=== PATIENT | male | born 1980 | race African-American/Black ===

== ENCOUNTER 2017-09-28 08:35 | Inpatient (IN) | payer OTHER ==
[2017-09-28 08:55] VITALS: BMI 36.2
--- NOTE | 2017-09-28 11:32 | HP ---
CIWA Score - CIWA Score Nausea/Vomitin-No Nausea/No Vomiting Muscle Tremors: 4-Moderate,w/Arms Extend Anxiety: 4-Mod. Anxious/Guarded Agitation: 4-Moderately Restless Paroxysmal Sweats: 3 Orientation: 0-Oriented Tacttile Disturbances: 0-None Auditory Disturbances: 0-None Visual Disturbances: 0-None Headache: 0-None Present CIWA-Ar Total Score: 15 Admission ROS BHS - HPI Chief Complaint: I need to correct my life again I slipped and need to get it right again. Allergies/Adverse Reactions: Allergies Allergy/AdvReac Type Severity Reaction Status Date / Time erythromycin base Allergy Severe Swelling Verified 09/28/17 09:44 penicillin G Allergy Severe Swelling Verified 09/28/17 09:44 History of Present Illness: pt is a 37yr old male with a history of alcohol and cocaine dependence seeking detox for treatment. Exam Limitations: No Limitations - Ebola screening Have you traveled outside of the country in the last 21 days: No Have you had contact with anyone from an Ebola affected area: No Have you been sick,other than usual withdrawal symptoms: No Do you have a fever: No - Review of Systems Constitutional: Diaphoresis, Changes in sleep EENT: reports: No Symptoms Reported Respiratory: reports: No Symptoms reported Cardiac: reports: No Symptoms Reported GI: reports: Poor Fluid Intake : reports: No Symptoms Reported Musculoskeletal: reports: Muscle Weakness Integumentary: reports: Flushing, Sweating Neuro: reports: Tingling, Tremors Endocrine: reports: Excessive Sweating, Flushing, Intolerance to Cold, Intolerance to Heat Hematology: reports: No Symptoms Reported Psychiatric: reports: Judgement Intact, Mood/Affect Appropiate, Orientated x3, Agitated, Anxious Other Systems: Reviewed and Negative Patient History - Patient Medical History Hx Anemia: No Hx Asthma: No Hx Chronic Obstructive Pulmonary Disease (COPD): No Hx Cancer: No Hx Cardiac Disorders: No Hx Congestive Heart Failure: No Hx Hypertension: No Hx Hypercholesterolemia: No Hx Pacemaker: No HX Cerebrovascular Accident: No Hx Seizures: No Hx Dementia: No Hx Diabetes: No Hx Gastrointestinal Disorders: No Hx Liver Disease: No Hx Genitourinary Disorders: No Hx Sexually Transmitted Disorders: No Hx Renal Disease (ESRD): No Hx Thyroid Disease: No Hx Human Immunodeficiency Virus (HIV): No (negative) Hx Hepatitis C: No Hx Depression: Yes Hx Suicide Attempt: No (denies) Hx Bipolar Disorder: No Hx Schizophrenia: No - Patient Surgical History Past Surgical History: Yes Hx Neurologic Surgery: No Hx Cataract Extraction: No Hx Cardiac Surgery: No Hx Lung Surgery: No Hx Breast Surgery: No Hx Breast Biopsy: No Hx Abdominal Surgery: No Hx Appendectomy: No Hx Cholecystectomy: No Hx Genitourinary Surgery: No Hx Section: No Hx Orthopedic Surgery: Yes (fx, right thumb in 2006) Other Surgical History: bilateral inguinal hernia repair in 2013 - PPD History Previous Implant?: Yes Documented Results: Negative w/o proof PPD to be Administered?: Yes - Reproductive History Patient is a Female of Child Bearing Age (11 -55 yrs old): No - Smoking Cessation Smoking history: Current every day smoker Have you smoked in the past 12 months: Yes Aproximately how many cigarettes per day: 2 Hx Chewing Tobacco Use: No Initiated information on smoking cessation: Yes 'Breaking Loose' booklet given: 09/28/17 - Substance & Tx. History Hx Alcohol Use: Yes Hx Substance Use: Yes Substance Use Type: Alcohol, Cocaine Hx Substance Use Treatment: Yes (last detox 7yrs ago at [facility]) - Substances Abused Cocaine Route: Inhalation Frequency: 1-2 times per week Amount used: $100 Age of first use: 36 Date of Last Use: 09/27/17 Alcohol-cognac Route: Oral Frequency: Daily Amount used: 1 gal. hennesy Age of first use: 20 Date of Last Use: 09/28/17 Family Disease History - Family Disease History Family Disease History: CA: [facility] Admission Physical Exam S - Vital Signs Vital Signs: Vital Signs - 24 hr 09/28/17 08:53 Temperature 97.7 F Pulse Rate 105 H Respiratory 18 Rate Blood Pressure 118/98 - Physical General Appearance: Yes: Appropriately Dressed, Moderate Distress, Tremorous, Irritable, Sweating, Anxious HEENTM: Yes: Hearing grossly Normal, Normal Voice, Nasal Congestion, Rhinorrhea Respiratory: Yes: Lungs Clear, Normal Breath Sounds, No Respiratory Distress Neck: Yes: No masses,lesions,Nodules Breast: Yes: Within Normal Limits Cardiology: Yes: Regular Rhythm, Regular Rate, S1, S2 Abdominal: Yes: Normal Bowel Sounds, Non Tender, Soft Genitourinary: Yes: Within Normal Limits Back: Yes: Normal Inspection Musculoskeletal: Yes: full range of Motion Extremities: Yes: Normal Capillary Refill, Normal Inspection, Non-Tender, Tremors Neurological: Yes: Fully Oriented, Alert, Normal Response Integumentary: Yes: Normal Color, Diaphoresis Lymphatic: Yes: Within Normal Limits - Diagnostic (1) Alcohol dependence with uncomplicated withdrawal Current Visit: Yes Status: Chronic (2) Cocaine dependence Current Visit: Yes Status: Chronic Qualifiers: Substance use status: uncomplicated Qualified Code(s): F14.20 - Cocaine dependence, uncomplicated; F14.20 - Cocaine dependence, uncomplicated; F14.20 - Cocaine dependence, uncomplicated (3) Nicotine dependence Current Visit: Yes Status: Chronic Qualifiers: Nicotine product type: cigarettes Substance use status: uncomplicated Qualified Code(s): F17.210 - Nicotine dependence, cigarettes, uncomplicated; F17.210 - Nicotine dependence, cigarettes, uncomplicated Cleared for Admission S - Detox or Rehab [facility] Level of Care: Medically Managed Detox Regimen/Protocol: Librium [facility] Breath Alcohol Content Breath Alcohol Content: 0 Urine Drug Screen - Results Drug Screen Negative: No Urine Drug Screen Results: ELICIA-Cocaine
[2017-09-28] MEDS ORDERED: MAGNESIUM CITRATE 300 ML BOTTLE PO PRN (11:36)
[2017-09-28] MEDS ORDERED: LOPERAMIDE HCL 2 MG CAPSULE PO PRN (11:36)
[2017-09-28] MEDS ORDERED: ACETAMINOPHEN 325 MG TABLET (FP) PO PRN (11:36)
[2017-09-28] MEDS ORDERED: chlordiazePOXIDE HCL 25 MG CAPSULE PO PRN (11:36)
[2017-09-28] MEDS ORDERED: MAG HYDROX/AL HYDROX/SIMETH 30 ML UNIT-DOSE CUP PO PRN (11:36)
[2017-09-28] MEDS ORDERED: IBUPROFEN 400 MG TABLET (FP) PO PRN (11:36)
[2017-09-28] MEDS ORDERED: MAGNESIUM HYDROX 2400MG/30ML ORAL SUSPENSION 30 ML CUP PO PRN (11:36)
[2017-09-28] MEDS ORDERED: hydrOXYzine PAMOATE 50 MG CAPSULE (FP) PO PRN (11:36)
[2017-09-28] MEDS ORDERED: MENTHOL/PHENOL 1 EACH UD MM PRN (11:36)
[2017-09-28] MEDS ORDERED: guaiFENesin/D-METHORPHAN HB 10 ML UNIT-DOSE CUPS PO PRN (11:36)
[2017-09-28] MEDS ORDERED: P-EPHED 60MG/TRIPROLIDI 2.5MG TABLET PO PRN (11:36)
[2017-09-28] MEDS ORDERED: chlordiazePOXIDE HCL 25 MG CAPSULE PO ONE (12:18)
--- NOTE | 2017-09-28 12:33 | CONSULT ---
[facility] Psychiatric Consult - Data Date of interview: 09/28/17 Admission source: [facility] Identifying data: This is 37 years old male with no past psychiatric history intoxicated with: Alcohol, Cocaine and Nicotine Substance Abuse History: Urine Drug Screen Results: ELICIA-Cocaine. Smoking history: Current every day smoker. Have you smoked in the past 12 months: Yes. Aproximately how many cigarettes per day: 2. Hx Chewing Tobacco Use: No. Initiated information on smoking cessation: Yes. 'Breaking Loose' booklet given : 09/28/17. - Substance & Tx. History. Hx Alcohol Use: Yes. Hx Substance Use : Yes. Substance Use Type: Alcohol, Cocaine. Hx Substance Use Treatment: Yes ( last detox [address] [facility]). - Substances Abused. Cocaine. Route: Inhalation. Frequency: 1-2 times per week. Amount used: $100. Age of first use: 36. Date of Last Use: 09/27/17. Alcohol-cognac. Route: Oral. Frequency: Daily. Amount used: 1 gal. hennesy. Age of first use: 20. Date of Last Use: 09/28/17 Medical History: Denies Psychiatric History: Denies Physical/Sexual Abuse/Trauma History: Denies Additional Comment: Urine Drug Screen Results: ELICIA-Cocaine. Observation. Detox Unit Care Protocol Mental Status Exam - Mental Status Exam Alert and Oriented to: Person Cognitive Function: Fair Patient Appearance: Well Groomed Mood: Apprehensive Affect: Appropriate Patient Behavior: Cooperative Speech Pattern: Appropriate Voice Loudness: Normal Thought Process: Goal Oriented Hallucinations: Denies Suicidal Ideation: Denies Homicidal Ideation: Denies Insight/Judgement: Fair Sleep: Difficulty falling asleep Appetite: Fair Muscle strength/Tone: Normal Gait/Station: Normal Additional Comments: Observation. Detox Unit Care Protocol Psychiatric Findings - Problem List (Reading 1, 2,3) (1) Alcohol dependence with uncomplicated withdrawal Current Visit: Yes Status: Chronic (2) Cocaine dependence Current Visit: Yes Status: Chronic Qualifiers: Substance use status: uncomplicated Qualified Code(s): F14.20 - Cocaine dependence, uncomplicated; F14.20 - Cocaine dependence, uncomplicated; F14.20 - Cocaine dependence, uncomplicated (3) Nicotine dependence Current Visit: Yes Status: Chronic Qualifiers: Nicotine product type: cigarettes Substance use status: uncomplicated Qualified Code(s): F17.210 - Nicotine dependence, cigarettes, uncomplicated; F17.210 - Nicotine dependence, cigarettes, uncomplicated (4) Drug-induced mood disorder Current Visit: Yes Status: Suspected - Initial Treatment Plan Initial Treatment Plan: Observation. Detox Unit Care Protocol
[2017-09-28 16:24] LABS: URINE APPEARANCE SLCLOUDY; URINE BILIRUBIN NEGATIVE (NEGATIVE); URINE BLOOD NEGATIVE (NEGATIVE); URINE COLOR AMBER; URINE GLUCOSE (UA) NEGATIVE (NEGATIVE); URINE KETONE 2+ (NEGATIVE); URINE NITRITE NEGATIVE (NEGATIVE)
[2017-09-28 16:35] LABS: URINE PROTEIN 2+ (NEGATIVE)
[2017-09-28 16:48] LABS: URINE MUCUS MODERATE; URINE RBC 1 /hpf (0-3); URINE WBC 2 /hpf (3-5)
--- NOTE | 2017-09-28 17:09 | EKG ---
Test Reason : Blood Pressure : / mmHG Vent. Rate : 073 BPM Atrial Rate : 073 BPM P-R Int : 120 ms QRS Dur : 100 ms QT Int : 418 ms P-R-T Axes : 028 047 030 degrees QTc Int : 460 ms NORMAL SINUS RHYTHM NORMAL ECG NO PREVIOUS ECGS AVAILABLE Confirmed by LORENZA MURRY MD ([id number]) on 09/28/2017 5:08:33 PM Referred By: Confirmed By:LORENZA MURRY MD
[2017-09-28] MEDS: chlordiazePOXIDE HCL 25 MG CAPSULE PO SCH ×2 (17:16→22:22)
[2017-09-28 18:34] LABS: URINE LEUK ESTERASE Negative (NEGATIVE)
[2017-09-28] MEDS: diphenhydrAMINE HCL 50 MG CAPSULE PO PRN (22:22)
[2017-09-28] MEDS: THIAMINE HCL 100 MG TABLET (FP) PO SCH (22:22)
[2017-09-29] MEDS: chlordiazePOXIDE HCL 25 MG CAPSULE PO SCH ×4 (05:16→22:17)
[2017-09-29 09:39] LABS: MCH 28.2 pg (25.7-33.7); MCHC 32.2 g/dl (32.0-35.9); MEAN CELL VOLUME 87.4 fl (80-96); MEAN PLT VOLUME 9.3 fl (7.5-11.1); PLATELET COUNT 241 K/MM3 (134-434); RDW 13.5 % (11.9-15.9); WHITE BLOOD COUNT 6.5 K/mm3 (4.0-10.0)
[2017-09-29 09:57] LABS: ALK PHOS 112 U/L (45-117); ANION GAP 8 (8-16); BILIRUBIN,TOTAL 1.2 mg/dL (0.2-1.0); CALCIUM 8.9 mg/dL (8.5-10.1); CO2 29 mmol/L (21-32); GLUCOSE,RANDOM 100 mg/dL (74-106); SGOT/AST 312 U/L (15-37); SGPT/ALT 108 U/L (12-78); TOT PROT 7.5 g/dl (6.4-8.2)
[2017-09-29] MEDS: PRENATAL VITAMINS W/ FOLIC ACID TABLET (FP) PO SCH (10:15)
[2017-09-29] MEDS: NICOTINE 21 MG/24 HOURS TOPICAL PATCH TD SCH (10:16)
--- NOTE | 2017-09-29 11:09 | PN ---
[facility] CIWA - CIWA Score Nausea/Vomitin-No Nausea/No Vomiting Muscle Tremors: 4-Moderate,w/Arms Extend Anxiety: 4-Mod. Anxious/Guarded Agitation: 4-Moderately Restless Paroxysmal Sweats: 1-Minimal Palms Moist Orientation: 0-Oriented Tacttile Disturbances: 3-Moderate Itch/Numb/Burn Auditory Disturbances: 0-None Visual Disturbances: 0-None Headache: 0-None Present CIWA-Ar Total Score: 16 BHS Progress Note (SOAP) Subjective: ANXIETY,SWEATS,FATIGUE. Objective: 09/29/17 11:07 Vital Signs Temperature 96.4 F L 09/29/17 10:00 Pulse Rate 86 09/29/17 10:00 Respiratory Rate 18 09/29/17 10:00 Blood Pressure 131/90 09/29/17 10:00 O2 Sat by Pulse Oximetry (%) Laboratory Last Values WBC 6.5 K/mm3 (4.0-10.0) 09/29/17 06:00 RBC 4.74 M/mm3 (4.00-5.60) 09/29/17 06:00 Hgb 13.3 GM/dL (11.7-16.9) 09/29/17 06:00 Hct 41.4 % (35.4-49) 09/29/17 06:00 MCV 87.4 fl (80-96) 09/29/17 06:00 MCH 28.2 pg (25.7-33.7) 09/29/17 06:00 MCHC 32.2 g/dl (32.0-35.9) 09/29/17 06:00 RDW 13.5 % (11.9-15.9) 09/29/17 06:00 Plt Count 241 K/MM3 (134-434) 09/29/17 06:00 MPV 9.3 fl (7.5-11.1) 09/29/17 06:00 Sodium 137 mmol/L (136-145) 09/29/17 06:00 Potassium 4.4 mmol/L (3.5-5.1) 09/29/17 06:00 Chloride 100 mmol/L (98-107) 09/29/17 06:00 Carbon Dioxide 29 mmol/L (21-32) 09/29/17 06:00 Anion Gap 8 (8-16) 09/29/17 06:00 BUN 11 mg/dL (7-18) 09/29/17 06:00 Creatinine 1.0 mg/dL (0.7-1.3) 09/29/17 06:00 Creat Clearance w eGFR > 60 (>60) 09/29/17 06:00 Random Glucose 100 mg/dL (74-106) 09/29/17 06:00 Calcium 8.9 mg/dL (8.5-10.1) 09/29/17 06:00 Total Bilirubin 1.2 mg/dL (0.2-1.0) H 09/29/17 06:00 AST 312 U/L (15-37) H 09/29/17 06:00 ALT 108 U/L (12-78) H 09/29/17 06:00 Alkaline Phosphatase 112 U/L (45-117) 09/29/17 06:00 Total Protein 7.5 g/dl (6.4-8.2) 09/29/17 06:00 Albumin 4.0 g/dl (3.4-5.0) 09/29/17 06:00 Urine Color Yolanda 09/28/17 14:00 Urine Appearance Slcloudy 09/28/17 14:00 Urine pH 5.0 (5.0-8.0) 09/28/17 14:00 Ur Specific [place] 1.033 (1.001-1.035) 09/28/17 14:00 Urine Protein 2+ (NEGATIVE) H 09/28/17 14:00 Urine Glucose (UA) Negative (NEGATIVE) 09/28/17 14:00 Urine Ketones 2+ (NEGATIVE) H 09/28/17 14:00 Urine Blood Negative (NEGATIVE) 09/28/17 14:00 Urine Nitrite Negative (NEGATIVE) 09/28/17 14:00 Urine Bilirubin Negative (NEGATIVE) 09/28/17 14:00 Urine Urobilinogen 2.0 mg/dL (0.2-1.0) 09/28/17 14:00 Ur Leukocyte Esterase Negative (NEGATIVE) 09/28/17 14:00 Urine RBC 1 /hpf (0-3) 09/28/17 14:00 Urine WBC 2 /hpf (3-5) 09/28/17 14:00 Ur Epithelial Cells Rare /hpf (FEW) 09/28/17 14:00 Urine Mucus Moderate 09/28/17 14:00 LABS NOTED ELEVATED AST/ALT Assessment: 09/29/17 11:08 WITHDRAWAL SX Plan: CONTINUE DETOX REPEAT AST AND ALT;INR IN AM
[2017-09-29] MEDS ORDERED: FLU VACCINE QUAD 60 MCG/0.5 ML (MDV 17-18) IM ONE (12:00)
[2017-09-29] MEDS: THIAMINE HCL 100 MG TABLET (FP) PO SCH (22:17)
[2017-09-29] MEDS: diphenhydrAMINE HCL 50 MG CAPSULE PO PRN (22:18)
[2017-09-30] MEDS: chlordiazePOXIDE HCL 25 MG CAPSULE PO SCH ×2 (06:04→10:23)
[2017-09-30] MEDS: NICOTINE 21 MG/24 HOURS TOPICAL PATCH TD SCH (10:23)
[2017-09-30] MEDS: PRENATAL VITAMINS W/ FOLIC ACID TABLET (FP) PO SCH (10:23)
--- NOTE | 2017-09-30 16:46 | PN ---
[facility] CIWA - CIWA Score Nausea/Vomitin-No Nausea/No Vomiting Muscle Tremors: 4-Moderate,w/Arms Extend Anxiety: 4-Mod. Anxious/Guarded Agitation: 3 Paroxysmal Sweats: 3 Orientation: 0-Oriented Tacttile Disturbances: 2-Mild Itch/Numbness/Burn Auditory Disturbances: 0-None Visual Disturbances: 0-None Headache: 0-None Present CIWA-Ar Total Score: 16 BHS Progress Note (SOAP) Subjective: Tremors, Sweating, Anxious. Objective: PT. A & O X 3, OBSERVED AMBULATING ON UNIT. NO ACUTE DISTRESS. 09/30/17 16:43 Vital Signs Temperature 97.7 F 09/30/17 13:33 Pulse Rate 93 H 09/30/17 13:33 Respiratory Rate 18 09/30/17 13:33 Blood Pressure 135/90 09/30/17 13:33 O2 Sat by Pulse Oximetry (%) Laboratory Tests 09/28/17 09/29/17 09/29/17 14:00 06:00 06:00 WBC 6.5 RBC 4.74 Hgb 13.3 Hct 41.4 MCV 87.4 MCH 28.2 MCHC 32.2 RDW 13.5 Plt Count 241 MPV 9.3 Sodium 137 Potassium 4.4 Chloride 100 Carbon Dioxide 29 Anion Gap 8 BUN 11 Creatinine 1.0 Creat Clearance w eGFR > 60 Random Glucose 100 Calcium 8.9 Total Bilirubin 1.2 H AST 312 H ALT 108 H Alkaline Phosphatase 112 Total Protein 7.5 Albumin 4.0 Urine Color Yolanda Urine Appearance Slcloudy Urine pH 5.0 Ur Specific [place] 1.033 Urine Protein 2+ H Urine Glucose (UA) Negative Urine Ketones 2+ H Urine Blood Negative Urine Nitrite Negative Urine Bilirubin Negative Urine Urobilinogen 2.0 Ur Leukocyte Esterase Negative Urine RBC 1 Urine WBC 2 Ur Epithelial Cells Rare Urine Mucus Moderate RPR Titer 09/29/17 06:00 WBC RBC Hgb Hct MCV MCH MCHC RDW Plt Count MPV Sodium Potassium Chloride Carbon Dioxide Anion Gap BUN Creatinine Creat Clearance w eGFR Random Glucose Calcium Total Bilirubin AST ALT Alkaline Phosphatase Total Protein Albumin Urine Color Urine Appearance Urine pH Ur Specific [place] Urine Protein Urine Glucose (UA) Urine Ketones Urine Blood Urine Nitrite Urine Bilirubin Urine Urobilinogen Ur Leukocyte Esterase Urine RBC Urine WBC Ur Epithelial Cells Urine Mucus RPR Titer Nonreactive LABS NOTED. Assessment: 09/30/17 16:44 WITHDRAWAL SYMPTOMS. Plan: CONTINUE DETOX. REPEAT AST AND ALT TOMORROW AM FOR ELEVATED ADMISSION VALUES.
[2017-09-30] MEDS: chlordiazePOXIDE 5 MG CAPSULE PO SCH ×2 (17:30→22:16)
[2017-09-30] MEDS: NICOTINE POLACRILEX 4 MG GUM BUC PRN (17:31)
[2017-09-30] MEDS: THIAMINE HCL 100 MG TABLET (FP) PO SCH (22:16)
[2017-09-30] MEDS: diphenhydrAMINE HCL 50 MG CAPSULE PO PRN (22:16)
[2017-10-01] MEDS: chlordiazePOXIDE 5 MG CAPSULE PO SCH ×2 (06:01→10:35)
[2017-10-01] MEDS: PRENATAL VITAMINS W/ FOLIC ACID TABLET (FP) PO SCH (10:35)
[2017-10-01] MEDS: NICOTINE 21 MG/24 HOURS TOPICAL PATCH TD SCH (10:35)
[2017-10-01] MEDS: NICOTINE POLACRILEX 4 MG GUM BUC PRN ×2 (10:35→17:32)
[2017-10-01 11:27] LABS: INR 0.9 (0.82-1.09); PROTHROMBIN TIME (PATIENT) 10.2 SEC (9.98-11.88)
[2017-10-01 11:32] LABS: ALBUMIN 3.2 g/dl (3.4-5.0); ANION GAP 8 (8-16); CALCIUM 7.9 mg/dL (8.5-10.1); CO2 28 mmol/L (21-32)
[2017-10-01 11:38] LABS: ALK PHOS 101 U/L (45-117); BILIRUBIN,TOTAL 0.3 mg/dL (0.2-1.0); CREATININE 0.8 mg/dL (0.7-1.3); GLUCOSE,RANDOM 98 mg/dL (74-106); SGOT/AST 46 U/L (15-37); SGPT/ALT 57 U/L (12-78); TOT PROT 6.2 g/dl (6.4-8.2)
--- NOTE | 2017-10-01 14:35 | PN ---
BHS Progress Note (SOAP) Subjective: Anxious, sweating, interrupted sleep Objective: 10/01/17 14:31 Last Vital Signs Temp Pulse Resp BP Pulse Ox 96.0 F L 80 20 136/89 10/01/17 13:42 10/01/17 13:42 10/01/17 13:42 10/01/17 13:42 Laboratory Tests 09/28/17 09/29/17 09/29/17 14:00 06:00 06:00 WBC 6.5 RBC 4.74 Hgb 13.3 Hct 41.4 MCV 87.4 MCH 28.2 MCHC 32.2 RDW 13.5 Plt Count 241 MPV 9.3 PT with INR INR Sodium 137 Potassium 4.4 Chloride 100 Carbon Dioxide 29 Anion Gap 8 BUN 11 Creatinine 1.0 Creat Clearance w eGFR > 60 Random Glucose 100 Calcium 8.9 Total Bilirubin 1.2 H AST 312 H ALT 108 H Alkaline Phosphatase 112 Total Protein 7.5 Albumin 4.0 Urine Color Yolanda Urine Appearance Slcloudy Urine pH 5.0 Ur Specific [place] 1.033 Urine Protein 2+ H Urine Glucose (UA) Negative Urine Ketones 2+ H Urine Blood Negative Urine Nitrite Negative Urine Bilirubin Negative Urine Urobilinogen 2.0 Ur Leukocyte Esterase Negative Urine RBC 1 Urine WBC 2 Ur Epithelial Cells Rare Urine Mucus Moderate RPR Titer 09/29/17 10/01/17 10/01/17 06:00 07:20 07:20 WBC RBC Hgb Hct MCV MCH MCHC RDW Plt Count MPV PT with INR 10.20 INR 0.90 Sodium 142 Potassium 3.9 Chloride 106 Carbon Dioxide 28 Anion Gap 8 BUN 5 L D Creatinine 0.8 Creat Clearance w eGFR > 60 Random Glucose 98 Calcium 7.9 L Total Bilirubin 0.3 D AST 46 H D ALT 57 D Alkaline Phosphatase 101 Total Protein 6.2 L Albumin 3.2 L Urine Color Urine Appearance Urine pH Ur Specific [place] Urine Protein Urine Glucose (UA) Urine Ketones Urine Blood Urine Nitrite Urine Bilirubin Urine Urobilinogen Ur Leukocyte Esterase Urine RBC Urine WBC Ur Epithelial Cells Urine Mucus RPR Titer Nonreactive Labs noted: abnormal labs Assessment: 10/01/17 14:32 Withdrawal symptoms Noted with abnormal urine Plan: Continue detox Abnormal urine: encouraged to drink lots of water, repeat UA
[2017-10-01] MEDS: chlordiazePOXIDE HCL 10 MG CAPSULE PO SCH ×2 (17:32→22:21)
[2017-10-01] MEDS: THIAMINE HCL 100 MG TABLET (FP) PO SCH (22:21)
[2017-10-01] MEDS: diphenhydrAMINE HCL 50 MG CAPSULE PO PRN (22:21)
[2017-10-02 02:06] LABS: URINE APPEARANCE CLEAR; URINE BILIRUBIN NEGATIVE (NEGATIVE); URINE BLOOD NEGATIVE (NEGATIVE); URINE COLOR YELLOW; URINE GLUCOSE (UA) NEGATIVE (NEGATIVE); URINE KETONE NEGATIVE (NEGATIVE); URINE NITRITE NEGATIVE (NEGATIVE); URINE PROTEIN NEGATIVE (NEGATIVE); URINE UROBILINOGEN NEGATIVE mg/dL (0.2-1.0)
[2017-10-02] MEDS: chlordiazePOXIDE HCL 10 MG CAPSULE PO SCH (05:44)
[2017-10-02 06:18] VITALS: BP 144/82; PULSE 69; TEMP 97.5
[2017-10-02] MEDS: NICOTINE POLACRILEX 4 MG GUM BUC PRN (07:30)
[2017-10-02 12:31] LABS: URINE LEUK ESTERASE Negative (NEGATIVE)
--- NOTE | 2017-10-02 13:48 | DS ---
[facility] Detox Discharge Summary Admission Date: 09/28/17 Discharge Date: 10/02/17 - History Present History: Alcohol Dependence, Cocaine Dependence Additional Comments: PATIENT GOING HOME. PATIENT REPORTS THAT HE HAS AN OUTPATIENT DAY PROGRAM ( PATIENT UNABLE TO RECALL NAME AT THIS TIME) THAT HE WILL GO TO FOR AFTERCARE. PATIENT WAS DISCHARGED FROM DETOX UNIT IN STABLE MEDICAL CONDITION. Pertinent Past History: Depression, Nicotine Dependence. - Physical Exam Results Vital Signs: Vital Signs Temperature 97.5 F L 10/02/17 06:17 Pulse Rate 69 10/02/17 06:17 Respiratory Rate 18 10/02/17 06:17 Blood Pressure 144/82 10/02/17 06:17 O2 Sat by Pulse Oximetry (%) Pertinent Admission Physical Exam Findings: WITHDRAWAL SYMPTOMS. Laboratory Tests 09/28/17 09/29/17 09/29/17 14:00 06:00 06:00 WBC 6.5 RBC 4.74 Hgb 13.3 Hct 41.4 MCV 87.4 MCH 28.2 MCHC 32.2 RDW 13.5 Plt Count 241 MPV 9.3 PT with INR INR Sodium 137 Potassium 4.4 Chloride 100 Carbon Dioxide 29 Anion Gap 8 BUN 11 Creatinine 1.0 Creat Clearance w eGFR > 60 Random Glucose 100 Calcium 8.9 Total Bilirubin 1.2 H AST 312 H ALT 108 H Alkaline Phosphatase 112 Total Protein 7.5 Albumin 4.0 Urine Color Yolanda Urine Appearance Slcloudy Urine pH 5.0 Ur Specific [place] 1.033 Urine Protein 2+ H Urine Glucose (UA) Negative Urine Ketones 2+ H Urine Blood Negative Urine Nitrite Negative Urine Bilirubin Negative Urine Urobilinogen 2.0 Ur Leukocyte Esterase Negative Urine RBC 1 Urine WBC 2 Ur Epithelial Cells Rare Urine Mucus Moderate RPR Titer 09/29/17 10/01/17 10/01/17 06:00 07:20 07:20 WBC RBC Hgb Hct MCV MCH MCHC RDW Plt Count MPV PT with INR 10.20 INR 0.90 Sodium 142 Potassium 3.9 Chloride 106 Carbon Dioxide 28 Anion Gap 8 BUN 5 L D Creatinine 0.8 Creat Clearance w eGFR > 60 Random Glucose 98 Calcium 7.9 L Total Bilirubin 0.3 D AST 46 H D ALT 57 D Alkaline Phosphatase 101 Total Protein 6.2 L Albumin 3.2 L Urine Color Urine Appearance Urine pH Ur Specific [place] Urine Protein Urine Glucose (UA) Urine Ketones Urine Blood Urine Nitrite Urine Bilirubin Urine Urobilinogen Ur Leukocyte Esterase Urine RBC Urine WBC Ur Epithelial Cells Urine Mucus RPR Titer Nonreactive 10/01/17 17:40 WBC RBC Hgb Hct MCV MCH MCHC RDW Plt Count MPV PT with INR INR Sodium Potassium Chloride Carbon Dioxide Anion Gap BUN Creatinine Creat Clearance w eGFR Random Glucose Calcium Total Bilirubin AST ALT Alkaline Phosphatase Total Protein Albumin Urine Color Yellow Urine Appearance Clear Urine pH 7.0 D Ur Specific [place] 1.019 Urine Protein Negative Urine Glucose (UA) Negative Urine Ketones Negative Urine Blood Negative Urine Nitrite Negative Urine Bilirubin Negative Urine Urobilinogen Negative Ur Leukocyte Esterase Negative Urine RBC Urine WBC Ur Epithelial Cells Urine Mucus RPR Titer LABS NOTED. - Treatment Hospital Course: Detox Protocol Followed, Detoxed Safely, Responded well, Discharged Condition Good Patient has Accepted a Rehab Referral to: NO. PT WILL GO TO LOCAL OUTPATIENT DAY PROGRAM FOR AFTERCARE. - Medication Discharge Medications: Ambulatory Orders NK [No Known Home Medication] 09/28/17 - Diagnosis (1) Alcohol dependence with uncomplicated withdrawal Status: Acute (2) Cocaine dependence Status: Acute Qualifiers: Substance use status: uncomplicated Qualified Code(s): F14.20 - Cocaine dependence, uncomplicated; F14.20 - Cocaine dependence, uncomplicated; F14.20 - Cocaine dependence, uncomplicated (3) Nicotine dependence Status: Acute Qualifiers: Nicotine product type: cigarettes Substance use status: in withdrawal Qualified Code(s): F17.213 - Nicotine dependence, cigarettes, with withdrawal; F17.213 - Nicotine dependence, cigarettes, with withdrawal (4) Drug-induced mood disorder Status: Suspected - AMA Did Patient Leave Against Medical Advice: No
== END 2017-10-02 09:19 | disposition home or self-care (01) | DRG 774 ==
LOC: YASAS 08:35 → Y3N 12:12
PROVIDERS: ADMIT Internal Medicine; ATTEND Internal Medicine
PROC: HZ2ZZZZ Detoxification Services for Substance Abuse Treatment (ICD-10-PCS; principal; 2017-09-28)
DX: F10.230 Alcohol dependence with withdrawal, uncomplicated (principal); F14.20 Cocaine dependence, uncomplicated; F17.213 Nicotine dependence, cigarettes, with withdrawal; F19.24 Other psychoactive substance dependence with psychoactive substance-induced mood disorder; R82.90 Unspecified abnormal findings in urine; R74.0 Nonspecific elevation of levels of transaminase and lactic acid dehydrogenase [LDH]; Z88.0 Allergy status to penicillin
CPT/HCPCS: 36415; 80053; 81003; 81015; 85027; 85610; 86593; 90688; 93005; 93010; G0008

== ENCOUNTER 2019-01-27 11:01 | Inpatient (IN) | payer OTHER ==
[2019-01-27 12:01] VITALS: BMI 29.9
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
[2019-01-27] MEDS ORDERED: P-EPHED 60MG/TRIPROLIDI 2.5MG TABLET PO PRN (14:12)
[2019-01-27] MEDS ORDERED: MAG HYDROX/AL HYDROX/SIMETH 30 ML UNIT-DOSE CUP PO PRN (14:12)
[2019-01-27] MEDS ORDERED: ACETAMINOPHEN 325 MG TABLET (FP) PO PRN (14:12)
[2019-01-27] MEDS ORDERED: guaiFENesin/D-METHORPHAN HB 10 ML UNIT-DOSE CUPS PO PRN (14:12)
[2019-01-27] MEDS ORDERED: MAGNESIUM CITRATE 300 ML BOTTLE PO PRN (14:12)
[2019-01-27] MEDS ORDERED: MENTHOL/PHENOL 1 EACH UD MM PRN (14:12)
[2019-01-27] MEDS ORDERED: MAGNESIUM HYDROX 2400MG/30ML ORAL SUSPENSION 30 ML CUP PO PRN (14:12)
[2019-01-27] MEDS ORDERED: LOPERAMIDE HCL 2 MG CAPSULE PO PRN (14:12)
[2019-01-27] MEDS ORDERED: IBUPROFEN 400 MG TABLET (FP) PO PRN (14:12)
[2019-01-27] MEDS ORDERED: IBUPROFEN 600 MG TABLET (FP) PO PRN (14:14)
[2019-01-27] MEDS: chlordiazePOXIDE HCL 25 MG CAPSULE PO PRN (15:50)
[2019-01-27] MEDS: NICOTINE 21 MG/24 HOURS TOPICAL PATCH TD SCH (15:54)
[2019-01-27] MEDS: chlordiazePOXIDE HCL 25 MG CAPSULE PO SCH ×2 (17:11→22:24)
[2019-01-27] MEDS: THIAMINE HCL 100 MG TABLET (FP) PO SCH (22:24)
[2019-01-28] MEDS: chlordiazePOXIDE HCL 25 MG CAPSULE PO SCH ×4 (05:17→22:14)
[2019-01-28 10:08] LABS: ALBUMIN 3.4 g/dl (3.4-5.0); ALK PHOS 95 U/L (45-117); ANION GAP 7 MMOL/L (8-16); BLOOD UREA NITROGEN 8 mg/dL (7-18); CALCIUM 8.8 mg/dL (8.5-10.1); CHLORIDE 104 mmol/L (98-107); CO2 30 mmol/L (21-32); CREATININE 0.9 mg/dL (0.55-1.3); GLUCOSE,RANDOM 94 mg/dL (74-106); POTASSIUM 4.7 mmol/L (3.5-5.1); SGOT/AST 25 U/L (15-37); SGPT/ALT 23 U/L (13-61); SODIUM 140 mmol/L (136-145); TOT PROT 6.9 g/dl (6.4-8.2)
[2019-01-28] MEDS: PRENATAL VITAMINS W/ FOLIC ACID TABLET (FP) PO SCH (10:21)
[2019-01-28] MEDS: NICOTINE 21 MG/24 HOURS TOPICAL PATCH TD SCH (10:21)
[2019-01-28 10:30] LABS: HEMATOCRIT 40.8 % (35.4-49); HEMOGLOBIN 13.5 GM/dL (11.7-16.9); MCH 29.8 pg (25.7-33.7); MCHC 33.2 g/dl (32.0-35.9); MEAN CELL VOLUME 89.8 fl (80-96); MEAN PLT VOLUME 8.7 fl (7.5-11.1); PLATELET COUNT 175 K/MM3 (134-434); RBC 4.54 M/mm3 (4.00-5.60); RDW 13.6 % (11.9-15.9); WHITE BLOOD COUNT 3.2 K/mm3 (4.0-10.0)
--- NOTE | 2019-01-28 13:23 | PN ---
S CIWA - CIWA Score Nausea/Vomitin-No Nausea/No Vomiting Muscle Tremors: 2 Anxiety: 4-Mod. Anxious/Guarded Agitation: 2 Paroxysmal Sweats: 3 Orientation: 0-Oriented Tacttile Disturbances: 2-Mild Itch/Numbness/Burn Auditory Disturbances: 0-None Visual Disturbances: 0-None Headache: 0-None Present CIWA-Ar Total Score: 13 [facility] Progress Note (SOAP) Subjective: Fatigue, Sweating, Tremors. Objective: PATIENT A & O X 3, OBSERVED AMBULATING ON UNIT. IN NO ACUTE DISTRESS. 01/28/19 13:23 Vital Signs Temperature 97.3 F L 01/28/19 09:21 Pulse Rate 92 H 01/28/19 12:00 Respiratory Rate 18 01/28/19 09:21 Blood Pressure 150/107 H 01/28/19 09:21 O2 Sat by Pulse Oximetry (%) Laboratory Tests 01/28/19 01/28/19 01/28/19 07:00 07:00 07:00 WBC 3.2 L RBC 4.54 Hgb 13.5 Hct 40.8 MCV 89.8 MCH 29.8 MCHC 33.2 RDW 13.6 Plt Count 175 D MPV 8.7 Sodium 140 Potassium 4.7 Chloride 104 Carbon Dioxide 30 Anion Gap 7 L BUN 8 Creatinine 0.9 Creat Clearance w eGFR > 60 Random Glucose 94 Calcium 8.8 Total Bilirubin 1.0 AST 25 ALT 23 Alkaline Phosphatase 95 Total Protein 6.9 Albumin 3.4 RPR Titer Nonreactive LABS NOTED. 01/28/19 13:26 Assessment: 01/28/19 13:26 WITHDRAWAL SYMPTOMS. LEUKOPENIA. ELEVATED BLOOD PRESSURE WITHOUT DIAGNOSIS OF HYPERTENSION. Plan: CONTINUE DETOX. CONTINUE TO MONITOR BP.
[2019-01-28] MEDS ORDERED: cloNIDine HCL 0.1 MG TABLET PO ONE (15:25)
--- NOTE | 2019-01-28 15:28 | PN ---
S Progress Note Note: Clonidine, 0.1 mg PO BID ordered for elevated BP. Received notice from RN that Patient Refused X-Ray of Right Hand because "His Hand Feels Better now." Danyel Choi NP
[2019-01-28] MEDS: THIAMINE HCL 100 MG TABLET (FP) PO SCH (22:15)
[2019-01-28] MEDS: MELATONIN 5 MG TABLETS PO PRN (22:15)
[2019-01-28] MEDS: cloNIDine HCL 0.1 MG TABLET PO SCH (22:15)
[2019-01-29] MEDS: chlordiazePOXIDE HCL 25 MG CAPSULE PO SCH ×2 (05:30→10:45)
--- NOTE | 2019-01-29 10:37 | PN ---
S CIWA - CIWA Score Nausea/Vomitin Muscle Tremors: 2 Anxiety: 2 Agitation: 2 Paroxysmal Sweats: 1-Minimal Palms Moist Orientation: 0-Oriented Tacttile Disturbances: 1-Very Mild Itch/Numbness Auditory Disturbances: 1-Very Mild Visual Disturbances: 0-None Headache: 2-Mild CIWA-Ar Total Score: 13 BHS Progress Note (SOAP) Subjective: alert,irritable,anxious,interrupted sleep,tremor,refuse x ray of right hand yesterday Objective: 01/29/19 10:36 Vital Signs Temperature 97.7 F 01/29/19 09:24 Pulse Rate 69 01/29/19 09:24 Respiratory Rate 18 01/29/19 09:24 Blood Pressure 134/86 01/29/19 09:24 O2 Sat by Pulse Oximetry (%) 01/29/19 10:36 Vital Signs Temperature 97.7 F 01/29/19 09:24 Pulse Rate 69 01/29/19 09:24 Respiratory Rate 18 01/29/19 09:24 Blood Pressure 134/86 01/29/19 09:24 O2 Sat by Pulse Oximetry (%) Laboratory Last Values WBC 3.2 K/mm3 (4.0-10.0) L 01/28/19 07:00 RBC 4.54 M/mm3 (4.00-5.60) 01/28/19 07:00 Hgb 13.5 GM/dL (11.7-16.9) 01/28/19 07:00 Hct 40.8 % (35.4-49) 01/28/19 07:00 MCV 89.8 fl (80-96) 01/28/19 07:00 MCH 29.8 pg (25.7-33.7) 01/28/19 07:00 MCHC 33.2 g/dl (32.0-35.9) 01/28/19 07:00 RDW 13.6 % (11.9-15.9) 01/28/19 07:00 Plt Count 175 K/MM3 (134-434) D 01/28/19 07:00 MPV 8.7 fl (7.5-11.1) 01/28/19 07:00 Sodium 140 mmol/L (136-145) 01/28/19 07:00 Potassium 4.7 mmol/L (3.5-5.1) 01/28/19 07:00 Chloride 104 mmol/L (98-107) 01/28/19 07:00 Carbon Dioxide 30 mmol/L (21-32) 01/28/19 07:00 Anion Gap 7 MMOL/L (8-16) L 01/28/19 07:00 BUN 8 mg/dL (7-18) 01/28/19 07:00 Creatinine 0.9 mg/dL (0.55-1.3) 01/28/19 07:00 Creat Clearance w eGFR > 60 (>60) 01/28/19 07:00 Random Glucose 94 mg/dL (74-106) 01/28/19 07:00 Calcium 8.8 mg/dL (8.5-10.1) 01/28/19 07:00 Total Bilirubin 1.0 mg/dL (0.2-1) 01/28/19 07:00 AST 25 U/L (15-37) 01/28/19 07:00 ALT 23 U/L (13-61) 01/28/19 07:00 Alkaline Phosphatase 95 U/L (45-117) 01/28/19 07:00 Total Protein 6.9 g/dl (6.4-8.2) 01/28/19 07:00 Albumin 3.4 g/dl (3.4-5.0) 01/28/19 07:00 RPR Titer Nonreactive (NONREACTIVE) 01/28/19 07:00 Assessment: 01/29/19 10:37 withdrawal symptom Plan: continue detox
[2019-01-29] MEDS: NICOTINE 21 MG/24 HOURS TOPICAL PATCH TD SCH (10:43)
[2019-01-29] MEDS: cloNIDine HCL 0.1 MG TABLET PO SCH ×2 (10:45→22:37)
[2019-01-29] MEDS: PRENATAL VITAMINS W/ FOLIC ACID TABLET (FP) PO SCH (10:45)
[2019-01-29] MEDS: chlordiazePOXIDE HCL 25 MG CAPSULE PO PRN (13:41)
[2019-01-29] MEDS: hydrOXYzine PAMOATE 50 MG CAPSULE (FP) PO PRN (13:41)
[2019-01-29] MEDS: chlordiazePOXIDE 5 MG CAPSULE PO SCH ×2 (17:59→22:37)
[2019-01-29] MEDS: THIAMINE HCL 100 MG TABLET (FP) PO SCH (22:37)
[2019-01-29] MEDS: MELATONIN 5 MG TABLETS PO PRN (22:37)
[2019-01-30] MEDS: chlordiazePOXIDE 5 MG CAPSULE PO SCH ×2 (06:47→11:02)
[2019-01-30] MEDS: PRENATAL VITAMINS W/ FOLIC ACID TABLET (FP) PO SCH (11:01)
[2019-01-30] MEDS: cloNIDine HCL 0.1 MG TABLET PO SCH ×2 (11:02→22:51)
[2019-01-30] MEDS: hydrOXYzine PAMOATE 50 MG CAPSULE (FP) PO PRN ×2 (11:02→15:02)
[2019-01-30] MEDS: NICOTINE 21 MG/24 HOURS TOPICAL PATCH TD SCH (11:03)
--- NOTE | 2019-01-30 14:21 | PN ---
BHS Progress Note (SOAP) Subjective: pt states feeling good but tired- day #3 of detox from alcohol, says will go to rehab after completing detox O: Vital Signs - 24 hr 01/29/19 01/29/19 01/29/19 17:11 21:18 21:40 Temperature 97.8 F 97.9 F 97.9 F Pulse Rate 90 79 72 Respiratory 18 18 18 Rate Blood Pressure 139/88 154/105 H 142/95 01/30/19 01/30/19 01/30/19 00:30 03:30 07:47 Temperature 97.3 F L Pulse Rate 63 Respiratory 20 18 18 Rate Blood Pressure 144/80 01/30/19 01/30/19 09:12 12:55 Temperature 97.7 F 97.3 F L Pulse Rate 97 H 100 H Respiratory 18 18 Rate Blood Pressure 157/99 159/99 Laboratory Tests 01/28/19 01/28/19 01/28/19 07:00 07:00 07:00 WBC 3.2 L RBC 4.54 Hgb 13.5 Hct 40.8 MCV 89.8 MCH 29.8 MCHC 33.2 RDW 13.6 Plt Count 175 D MPV 8.7 Sodium 140 Potassium 4.7 Chloride 104 Carbon Dioxide 30 Anion Gap 7 L BUN 8 Creatinine 0.9 Creat Clearance w eGFR > 60 Random Glucose 94 Calcium 8.8 Total Bilirubin 1.0 AST 25 ALT 23 Alkaline Phosphatase 95 Total Protein 6.9 Albumin 3.4 RPR Titer Nonreactive a/p continue alcohol detox protocol- pt doing well, labs WNL to d/w counselor re longterm plans
[2019-01-30] MEDS: chlordiazePOXIDE HCL 10 MG CAPSULE PO SCH ×2 (18:01→22:52)
[2019-01-30] MEDS: THIAMINE HCL 100 MG TABLET (FP) PO SCH (22:52)
[2019-01-31] MEDS: chlordiazePOXIDE HCL 10 MG CAPSULE PO SCH ×2 (06:30→09:00)
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
[2019-01-31] MEDS: cloNIDine HCL 0.1 MG TABLET PO SCH (09:00)
[2019-01-31] MEDS: NICOTINE 21 MG/24 HOURS TOPICAL PATCH TD SCH (09:00)
[2019-01-31] MEDS: PRENATAL VITAMINS W/ FOLIC ACID TABLET (FP) PO SCH (09:00)
[2019-01-31 09:35] VITALS: BP 131/75; PULSE 83; TEMP 97.3
== END 2019-01-31 08:58 | disposition home or self-care (01) | DRG 774 ==
LOC: YASAS 11:01 → Y6N 14:57
PROVIDERS: ADMIT Surgery; ATTEND Surgery
PROC: HZ2ZZZZ Detoxification Services for Substance Abuse Treatment (ICD-10-PCS; principal; 2019-01-27)
DX: F10.230 Alcohol dependence with withdrawal, uncomplicated (principal); F10.220 Alcohol dependence with intoxication, uncomplicated; F14.20 Cocaine dependence, uncomplicated; F17.210 Nicotine dependence, cigarettes, uncomplicated; F19.24 Other psychoactive substance dependence with psychoactive substance-induced mood disorder; D72.819 Decreased white blood cell count, unspecified; R00.0 Tachycardia, unspecified; Z88.0 Allergy status to penicillin
CPT/HCPCS: 36415; 80053; 85027; 86593; J0735